=== PATIENT | female | born 1995 | race Caucasian/White ===

== ENCOUNTER 2018-04-22 01:47 | Emergency (ER) | payer OTHER ==
[~2018-04-22] VITALS: Ht 162.6 cm; Wt 70.3 kg
[2018-04-22 03:48] VITALS: BP 136/72
== END 2018-04-22 03:51 | disposition home or self-care (01) ==
LOC: ER 01:50
DX: S60.222A Contusion of left hand, initial encounter (principal); W18.30XA Fall on same level, unspecified, initial encounter; Y93.89 Activity, other specified; Y92.89 Other specified places as the place of occurrence of the external cause; Y99.8 Other external cause status
CPT/HCPCS: 73130; 99284